=== PATIENT | male | born 1960 | race Caucasian/White ===

== ENCOUNTER 2019-08-29 16:58 | Emergency (ER) | payer OTHER ==
[~2019-08-29] VITALS: Ht 172.7 cm; Wt 81.8 kg
[~2019-08-29 16:58] MED LIST: ASPI81 PO; BUSP5TAB20 PO; DIAZ5 PO; GLIP10 PO; LOSA25TA41 PO; METF-444 PO
[2019-08-29] MEDS ORDERED: RIVA10 PO (17:08)
[2019-08-29] MEDS ORDERED: VANC125C6 PO (17:08)
[2019-08-29 17:20] VITALS: BP 147/76
== END 2019-08-29 18:15 | disposition left against medical advice (07) ==
LOC: EMS 16:59
DX: R55 Syncope and collapse (principal); R51 Headache; R42 Dizziness and giddiness; E11.9 Type 2 diabetes mellitus without complications; E78.00 Pure hypercholesterolemia, unspecified; I10 Essential (primary) hypertension; F41.9 Anxiety disorder, unspecified; Z79.899 Other long term (current) drug therapy; Z88.2 Allergy status to sulfonamides; Z88.0 Allergy status to penicillin
CPT/HCPCS: 93005

== ENCOUNTER 2019-09-07 11:06 | Emergency (ER) | payer OTHER ==
[~2019-09-07] VITALS: Ht 170.2 cm; Wt 77.3 kg
[~2019-09-07 11:06] MED LIST changes: -ASPI81 PO; -BUSP5TAB20 PO; -DIAZ5 PO; -LOSA25TA41 PO; +RIVA10 PO; +VANC125C6 PO
[2019-09-07 11:16] VITALS: BP 158/107
[2019-09-07 11:27] LABS: GLUCOSE,POINT OF CARE 171 MG/DL (70-110)
[2019-09-07] MEDS ORDERED: ACET-2247 PO (11:28)
[2019-09-07] MEDS ORDERED: RIVA20TA PO (11:28)
[2019-09-07] MEDS ORDERED: LOVA20 PO (11:28)
[2019-09-07] MEDS ORDERED: BIMA12.5OS OU (11:28)
[2019-09-07] MEDS ORDERED: LOSA50TA64 PO (11:28)
[2019-09-07] MEDS ORDERED: METF-960 PO (11:28)
[2019-09-07] MEDS ORDERED: PANT40TA25 PO (11:28)
[2019-09-07] MEDS ORDERED: EMPA25TA PO (11:28)
[2019-09-07] MEDS ORDERED: VANC1PIG IV (11:28)
[2019-09-07] MEDS ORDERED: TRAM50TA4 PO (11:28)
[2019-09-07] MEDS ORDERED: NORM2DIS4 IJ (11:28)
[2019-09-07] MEDS ORDERED: BUSP10TA23 PO (11:28)
[2019-09-07] MEDS ORDERED: ALBU8HFA IH (11:28)
[2019-09-07] MEDS ORDERED: DIAZ5 PO (11:28)
[2019-09-07] MEDS ORDERED: RIBO100T5 PO (11:28)
== END 2019-09-07 11:29 | disposition left against medical advice (07) ==
LOC: EMS 11:07
DX: R51 Headache (principal); Z53.21 Procedure and treatment not carried out due to patient leaving prior to being seen by health care provider